=== PATIENT | male | born 1970 | race Caucasian/White ===

== ENCOUNTER 2017-07-16 17:19 | Observation (INO) ==
[2017-07-16] MEDS ORDERED: 0.9 % Sodium Chloride 1,000 ML IVC ONE (17:43)
--- NOTE | 2017-07-16 17:43 | Emergency Department Note ---
Disposition Clinical Impression: Dehydration Chest pain Qualifiers: Chest pain type: unspecified Qualified Code(s): R07.9 - Chest pain, unspecified Disposition: Admitted As Inpatient Condition: Good Referrals: NONE,PCP [Primary Care Provider] - Forms: ED Satisfaction Letter Time of Disposition: 20:56 Chest Pain HPI - General Chief Complaint: ED Chest Pain Stated Complaint: C/P for 6 months vs ETOH Time Seen by Provider: 07/16/17 17:41 Source: EMS Mode of arrival: EMS Limitations: altered mental status, other Vital Signs Reviewed: Yes Nursing Notes Reviewed: Yes - History of Present Illness HPI Narrative: story difficult to obtain as patient is poor historian, but ems report was that the neighbor called ems for c/o patient stating chest pain off/on for 6 months. patient states he has been drinking today. patients story not coherant "I'm a wimp, you're a wimp, we go [place]" cannot redirect. Pt complaint: chest pain Severity scale (1-10): 0 - Related Data Home Medications Medication Instructions Recorded Confirmed [place] Carbonate 100 mg PO DAILY 05/26/16 07/16/17 Quetiapine Fumarate [Seroquel] 50 mg PO HS 05/26/16 07/16/17 traZODone [TraZODone] 150 mg PO HS 05/26/16 07/16/17 Previous Rx's Medication Instructions Recorded hydrOXYzine pamoate [Hydroxyzine 50 mg PO HS PRN #20 capsule 06/03/16 Pamoate] Allergies Allergy/AdvReac Type Severity Reaction Status Date / Time No Known Allergies Allergy Verified 12/10/15 10:42 Review of Systems: Review of systems difficult to obtain secondary to patient's condition Chart generated with voice recognition software Nursing notes reviewed Old records reviewed Chest Pain PMH - Past Medical History Medical history: Reports: non-contributory, other Surgical history: Reports: no surgical history Psychiatric history: Reports: anxiety, depression - Social History Smoking Status: Former smoker Alcohol use: Reports: occasionally Drug use: Reports: none Physical Exam General: NAD, VSS Head: normocephalic, atraumatic Eyes: EOMI, PERRLA mouth: Dry mucous membranes Neck: NO CLA, Supple Chest wall: normal rise, no crepitus, no deformity noted Lungs: moving air well, no distress Heart: Tachycardic regular rhythm Abd: soft, nontender, BS normal : deferred MSK: strength equal in all four extremities Ext: moves all four extremities, no obvious deformities Skin: cap refill normal, warm, dry neuro : CN2-12 grossly intact, oriented to person Psych: Not anxious - General Limitations: other General appearance: alert, in no apparent distress, appears intoxicated Course Course Narrative: patient presents today with confusion, and also chest pains.he came by ems. he initially was more confused, but since he has been here his confusion has improved. he was tachycardic when he arrived. this is now improved with hydration. patient states he has intermitant sharp chest pains that have come/go for 6 months. He is chest pain free right now. patient is comfortable staying overnight to be observed. Patient did try to get up, got caught in his iv line,a nd fell, striking his L hip. He denies any pain at this time. no loc. no head injury. I spoke with Dr Vidal, as I feel patient should be observed overnight, and he is agreeable to observation for chest pain. I spoke with psych who stated this was his baseline as far as they knew him, and they do know him. Vital Signs Temperature 98.8 F 07/16/17 17:21 Pulse Rate 120 07/16/17 17:21 Respiratory Rate 18 07/16/17 17:21 Blood Pressure 127/85 07/16/17 17:21 O2 Sat by Pulse Oximetry 97 07/16/17 17:21 Temperature 98.8 F 07/16/17 17:21 Pulse Rate 100 07/16/17 19:59 Respiratory Rate 16 07/16/17 19:59 Blood Pressure 154/103 07/16/17 19:59 O2 Sat by Pulse Oximetry 98 07/16/17 19:59 Oxygen Delivery Oxygen Delivery Room Air Chest Pain - Medical Records Medical records reviewed: Yes I reviewed the patient's medical records. - Lab Data Lab results reviewed: Yes I reviewed the patient's lab results. Result diagrams: 07/16/17 18:16 07/16/17 18:16 Lab Results 07/16/17 07/16/17 07/16/17 Range/Units 18:16 18:16 18:16 WBC 4.0 L (4.3-11.1) K/mcL RBC 4.15 L (4.19-5.50) M/mcL Hgb 14.7 (12.9-16.9) g/dL Hct 41.9 (37.5-50.1) % MCV 101.0 H (83.0-100.0) fL MCH 35.4 H (28.0-33.3) pg MCHC 35.1 (31.6-35.5) g/dL RDW 11.9 (11.5-14.5) % Plt Count 58 L (140-400) K/mcL MPV 11.4 (9.4-12.4) fL Immature Gran % 0.2 (0-4) % Seg Neutrophils % 60.1 % Lymphocytes % 23.9 % Monocytes % 14.9 % Eosinophils % 0.7 % Basophils % 0.2 % Neutrophils # 2.4 (1.6-8.9) K/mcL Lymphocytes # 1.0 (0.6-4.6) K/mcL Monocytes # 0.6 (0.0-1.3) K/mcL Eosinophils # 0.0 (0.0-0.6) K/mcL Basophils # 0.0 (0.0-0.2) K/mcL Platelet Estimate Decreased L (Normal) PT 14.4 H (9.4-12.1) Seconds INR 1.3 APTT 36.6 H (26.0-36.0) Seconds Sodium (136-145) mEq/L Potassium (3.5-5.1) mEq/L Chloride (98-107) mEq/L Carbon Dioxide (23-29) mEq/L BUN (6-20) mg/dL Creatinine (0.70-1.30) mg/dL Est GFR ( Amer) (> 60) Est GFR (Non-Af Amer) (> 60) BUN/Creatinine Ratio (6-26) Glucose (70-105) mg/dL Calculated Osmolality (280-300) Calcium (8.6-10.3) mg/dL Total Bilirubin 1.4 H (0.3-1.0) mg/dL Direct Bilirubin 0.4 H (0.0-0.2) mg/dL Indirect Bilirubin 1.0 (0.0-1.2) mg/dL AST 110 H (13-39) Units/L ALT 88 H (7-52) Units/L Alkaline Phosphatase 128 H (34-104) Units/L Ammonia (16-53) mcmol/L Troponin I (< 0.04) ng/mL Serum Total Protein 7.1 (6.4-8.9) g/dL Albumin 3.6 (3.5-5.7) g/dL Globulin 3.5 (2.4-3.5) g/dL Albumin/Globulin Ratio 1.0 L (1.1-2.2) Lipase 39 (11-82) Units/L Urine Color (Yellow) Urine Clarity (Clear) Urine pH (5.0-8.0) pH Units Ur Specific [place] (1.010-1.025) Urine Protein (Neg-Trace) mg/dL Urine Glucose (UA) (Normal) mg/dL Urine Ketones (Negative) mg/dL Urine Blood (Negative) Urine Nitrite (Negative) Urine Bilirubin (Negative) Urine Urobilinogen (Normal) mg/dL Ur Leukocyte Esterase (Negative) Ur Culture Indicated? (NO) Urine Opiates Screen (Axrdco=542) ng/mL Ur Oxycodone Screen (Cutoff= 100) ng/mL Ur Barbiturates Screen (Ghdhvi=662) ng/mL Ur Phencyclidine Scrn (Cutoff=25) ng/mL Ur Amphetamines Screen (Kmkzln=0489) ng/mL U Benzodiazepines Scrn (Hhhzhl=100) ng/mL [place] (0.6-1.2) mEq/L Urine Cocaine Screen (Cutoff= 300) ng/mL U Marijuana (THC) Screen (Cutoff = 50) ng/mL Ethyl Alcohol < 10 (Less than 10) mg/dL 07/16/17 07/16/17 07/16/17 Range/Units 18:16 18:16 18:22 WBC (4.3-11.1) K/mcL RBC (4.19-5.50) M/mcL Hgb (12.9-16.9) g/dL Hct (37.5-50.1) % MCV (83.0-100.0) fL MCH (28.0-33.3) pg MCHC (31.6-35.5) g/dL RDW (11.5-14.5) % Plt Count (140-400) K/mcL MPV (9.4-12.4) fL Immature Gran % (0-4) % Seg Neutrophils % % Lymphocytes % % Monocytes % % Eosinophils % % Basophils % % Neutrophils # (1.6-8.9) K/mcL Lymphocytes # (0.6-4.6) K/mcL Monocytes # (0.0-1.3) K/mcL Eosinophils # (0.0-0.6) K/mcL Basophils # (0.0-0.2) K/mcL Platelet Estimate (Normal) PT (9.4-12.1) Seconds INR APTT (26.0-36.0) Seconds Sodium 136 (136-145) mEq/L Potassium 4.3 (3.5-5.1) mEq/L Chloride 100 (98-107) mEq/L Carbon Dioxide 29 (23-29) mEq/L BUN 16 (6-20) mg/dL Creatinine 0.99 (0.70-1.30) mg/dL Est GFR ( Amer) > 60 (> 60) Est GFR (Non-Af Amer) > 60 (> 60) BUN/Creatinine Ratio 16 (6-26) Glucose 110 H (70-105) mg/dL Calculated Osmolality 284 (280-300) Calcium 9.1 (8.6-10.3) mg/dL Total Bilirubin (0.3-1.0) mg/dL Direct Bilirubin (0.0-0.2) mg/dL Indirect Bilirubin (0.0-1.2) mg/dL AST (13-39) Units/L ALT (7-52) Units/L Alkaline Phosphatase (34-104) Units/L Ammonia 31 (16-53) mcmol/L Troponin I < 0.03 (< 0.04) ng/mL Serum Total Protein (6.4-8.9) g/dL Albumin (3.5-5.7) g/dL Globulin (2.4-3.5) g/dL Albumin/Globulin Ratio (1.1-2.2) Lipase (11-82) Units/L Urine Color (Yellow) Urine Clarity (Clear) Urine pH (5.0-8.0) pH Units Ur Specific [place] (1.010-1.025) Urine Protein (Neg-Trace) mg/dL Urine Glucose (UA) (Normal) mg/dL Urine Ketones (Negative) mg/dL Urine Blood (Negative) Urine Nitrite (Negative) Urine Bilirubin (Negative) Urine Urobilinogen (Normal) mg/dL Ur Leukocyte Esterase (Negative) Ur Culture Indicated? (NO) Urine Opiates Screen (Xsqaxf=879) ng/mL Ur Oxycodone Screen (Cutoff= 100) ng/mL Ur Barbiturates Screen (Rtaeyi=664) ng/mL Ur Phencyclidine Scrn (Cutoff=25) ng/mL Ur Amphetamines Screen (Azyhjw=6484) ng/mL U Benzodiazepines Scrn (Jujiha=412) ng/mL [place] 0.0 L (0.6-1.2) mEq/L Urine Cocaine Screen (Cutoff= 300) ng/mL U Marijuana (THC) Screen (Cutoff = 50) ng/mL Ethyl Alcohol (Less than 10) mg/dL 07/16/17 07/16/17 07/16/17 Range/Units 20:15 20:15 20:19 WBC (4.3-11.1) K/mcL RBC (4.19-5.50) M/mcL Hgb (12.9-16.9) g/dL Hct (37.5-50.1) % MCV (83.0-100.0) fL MCH (28.0-33.3) pg MCHC (31.6-35.5) g/dL RDW (11.5-14.5) % Plt Count (140-400) K/mcL MPV (9.4-12.4) fL Immature Gran % (0-4) % Seg Neutrophils % % Lymphocytes % % Monocytes % % Eosinophils % % Basophils % % Neutrophils # (1.6-8.9) K/mcL Lymphocytes # (0.6-4.6) K/mcL Monocytes # (0.0-1.3) K/mcL Eosinophils # (0.0-0.6) K/mcL Basophils # (0.0-0.2) K/mcL Platelet Estimate (Normal) PT (9.4-12.1) Seconds INR APTT (26.0-36.0) Seconds Sodium (136-145) mEq/L Potassium (3.5-5.1) mEq/L Chloride (98-107) mEq/L Carbon Dioxide (23-29) mEq/L BUN (6-20) mg/dL Creatinine (0.70-1.30) mg/dL Est GFR ( Amer) (> 60) Est GFR (Non-Af Amer) (> 60) BUN/Creatinine Ratio (6-26) Glucose (70-105) mg/dL Calculated Osmolality (280-300) Calcium (8.6-10.3) mg/dL Total Bilirubin (0.3-1.0) mg/dL Direct Bilirubin (0.0-0.2) mg/dL Indirect Bilirubin (0.0-1.2) mg/dL AST (13-39) Units/L ALT (7-52) Units/L Alkaline Phosphatase (34-104) Units/L Ammonia (16-53) mcmol/L Troponin I < 0.03 (< 0.04) ng/mL Serum Total Protein (6.4-8.9) g/dL Albumin (3.5-5.7) g/dL Globulin (2.4-3.5) g/dL Albumin/Globulin Ratio (1.1-2.2) Lipase (11-82) Units/L Urine Color Yellow (Yellow) Urine Clarity Clear (Clear) Urine pH 5.5 (5.0-8.0) pH Units Ur Specific [place] <= 1.005 L (1.010-1.025) Urine Protein Negative (Neg-Trace) mg/dL Urine Glucose (UA) Normal (Normal) mg/dL Urine Ketones Negative (Negative) mg/dL Urine Blood Negative (Negative) Urine Nitrite Negative (Negative) Urine Bilirubin Negative (Negative) Urine Urobilinogen Normal (Normal) mg/dL Ur Leukocyte Esterase Negative (Negative) Ur Culture Indicated? NO (NO) Urine Opiates Screen Negative (Cqmtko=846) ng/mL Ur Oxycodone Screen Negative (Cutoff= 100) ng/mL Ur Barbiturates Screen Negative (Vshdut=782) ng/mL Ur Phencyclidine Scrn Negative (Cutoff=25) ng/mL Ur Amphetamines Screen Negative (Zwxusb=3418) ng/mL U Benzodiazepines Scrn Negative (Vxgklt=231) ng/mL [place] (0.6-1.2) mEq/L Urine Cocaine Screen Negative (Cutoff= 300) ng/mL U Marijuana (THC) Screen Positive H (Cutoff = 50) ng/mL Ethyl Alcohol (Less than 10) mg/dL - Radiology Data Radiology results reviewed: Yes I reviewed the patient's radiology results. - EKG Data EKG attestation: Yes I reviewed and interpreted this EKG. EKG results narrative: EKG interpreted by myself as sinus tachycardia rate of 113 and QTc [address] elevation I do not prior EKG for comparison at this time Heart Score - Score History: Slightly Suspicious EKG: Normal Age: 45-65 Troponin: Less than normal limit
[2017-07-16] MEDS ORDERED: Thiamine (B-1) 100 MG, Folic Acid 1 MG, MVI, adult with vitamin K 10 ML in 0.9 % Sodi... IVPB SCH ×2 (18:00→18:15)
[2017-07-16 18:36] LABS: Basophils % 0.2 %; Eosinophils % 0.7 %; Hematocrit 41.9 % (37.5-50.1); Hemoglobin 14.7 g/dL (12.9-16.9); Immature Granulocytes % 0.2 % (0-4); Lymphocytes % 23.9 %; Mean Corpuscular HGB Conc 35.1 g/dL (31.6-35.5); Mean Corpuscular Hemoglobin 35.4 pg (28.0-33.3); Mean Platelet Volume 11.4 fL (9.4-12.4); Monocytes # 0.6 K/mcL (0.0-1.3); Monocytes % 14.9 %; Neutrophils # 2.4 K/mcL (1.6-8.9); Red Blood Count 4.15 M/mcL (4.19-5.50); Red Cell Distribution Width 11.9 % (11.5-14.5); Segmented Neutrophils % 60.1 %
[2017-07-16 18:38] LABS: INR 1.3; Platelet Count 58 K/mcL (140-400); Prothrombin Time 14.4 Seconds (9.4-12.1)
[2017-07-16 18:41] LABS: Activated Partial Thrombo Time 36.6 Seconds (26.0-36.0)
[2017-07-16 18:45] LABS: BUN/Creatinine Ratio 16 (6-26); Blood Urea Nitrogen 16 mg/dL (6-20); Calcium 9.1 mg/dL (8.6-10.3); Carbon Dioxide 29 mEq/L (23-29); Chloride 100 mEq/L (98-107); Glucose 110 mg/dL (70-105); Osmolality,Calculated 284 (280-300); Potassium 4.3 mEq/L (3.5-5.1); Sodium 136 mEq/L (136-145); eGFR For African Americans > 60 (> 60); eGFR For Non-African Americans > 60 (> 60)
[2017-07-16 18:46] LABS: Alanine Aminotransferase 88 Units/L (7-52); Albumin 3.6 g/dL (3.5-5.7); Alkaline Phosphatase 128 Units/L (34-104); Aspartate Amino Transferase 110 Units/L (13-39); Bilirubin,Direct 0.4 mg/dL (0.0-0.2); Bilirubin,Total 1.4 mg/dL (0.3-1.0); Ethanol < 10 mg/dL (Less than 10); Globulin 3.5 g/dL (2.4-3.5); Lipase 39 Units/L (11-82); Total Protein 7.1 g/dL (6.4-8.9)
[2017-07-16 18:50] LABS: Troponin I < 0.03 ng/mL (< 0.04)
[2017-07-16 19:03] LABS: Platelet Estimate Decreased (Normal)
[2017-07-16 20:25] LABS: Bilirubin,Urine Negative (Negative); Blood,Urine Negative (Negative); Clarity,Urine Clear (Clear); Color,Urine Yellow (Yellow); Glucose,Urine (UA) Normal (Normal); Ketones,Urine Negative (Negative); Leukocyte Esterase,Urine Negative (Negative); Nitrite,Urine Negative (Negative); PH,Urine 5.5 pH Units (5.0-8.0); Protein,Urine Negative (Neg-Trace); Specific Gravity,Urine <= 1.005 (1.010-1.025); Urobilinogen,Urine Normal (Normal)
[2017-07-16 20:35] LABS: Amphetamine Screen,Urine Negative ng/mL (Cutoff=1000); Barbiturate Screen,Urine Negative ng/mL (Cutoff=200); Benzodiazepines Screen,Urine Negative ng/mL (Cutoff=200); Cannabinoid Screen,Urine Positive ng/mL (Cutoff = 50); Cocaine Screen,Urine Negative ng/mL (Cutoff= 300); Opiate Screen,Urine Negative ng/mL (Cutoff=300); Phencyclidine Screen,Urine Negative ng/mL (Cutoff=25)
[2017-07-16] MEDS ORDERED: *HR* Promethazine 25 MG/ML VIAL IVP PRN (22:46)
[2017-07-16] MEDS ORDERED: Naloxone 0.4 MG/ML INJ IVP PRN (22:46)
[2017-07-16] MEDS ORDERED: hydrOXYzine pamoate 25 MG CAPSULE PO PRN (22:46)
[2017-07-16] MEDS: 0.9 % Sodium Chloride 1,000 ML IVC SCH (23:18)
[2017-07-16] MEDS: *HR* LORazepam 2 MG/ML VIAL IVP PRN (23:21)
[2017-07-17] MEDS: *HR* LORazepam 2 MG/ML VIAL IVP PRN (00:17)
[2017-07-17] MEDS ORDERED: Haloperidol Lactate 5 MG/ML VIAL IVP ONE (02:09)
[2017-07-17 05:28] LABS: Basophils % 0.3 %; Eosinophils # 0.1 K/mcL (0.0-0.6); Eosinophils % 1.9 %; Hematocrit 40.5 % (37.5-50.1); Hemoglobin 13.8 g/dL (12.9-16.9); Lymphocytes % 30.5 %; Mean Corpuscular HGB Conc 34.1 g/dL (31.6-35.5); Mean Corpuscular Hemoglobin 35.8 pg (28.0-33.3); Mean Corpuscular Volume 104.9 fL (83.0-100.0); Mean Platelet Volume 12.5 fL (9.4-12.4); Monocytes # 0.5 K/mcL (0.0-1.3); Monocytes % 14.9 %; Neutrophils # 1.6 K/mcL (1.6-8.9); Red Blood Count 3.86 M/mcL (4.19-5.50); Red Cell Distribution Width 12.1 % (11.5-14.5); Segmented Neutrophils % 52.4 %
[2017-07-17 05:29] LABS: Platelet Count 68 K/mcL (140-400)
[2017-07-17 05:49] LABS: BUN/Creatinine Ratio 15 (6-26); Blood Urea Nitrogen 13 mg/dL (6-20); Calcium 8.7 mg/dL (8.6-10.3); Carbon Dioxide 29 mEq/L (23-29); Chloride 106 mEq/L (98-107); Glucose 101 mg/dL (70-105); Osmolality,Calculated 288 (280-300); Potassium 4.4 mEq/L (3.5-5.1); Sodium 139 mEq/L (136-145); eGFR For African Americans > 60 (> 60); eGFR For Non-African Americans > 60 (> 60)
[2017-07-17] MEDS ORDERED: LITHIUM CARBONATE PO SCH (09:00)
[2017-07-17] MEDS ORDERED: Thiamine (B-1) 100 MG TABLET PO SCH (09:00)
[2017-07-17] MEDS ORDERED: Vitamin B Complex/Vit C/Vit E 1 EACH TABLET PO SCH (09:00)
[2017-07-17] MEDS ORDERED: Folic Acid 1 MG TABLET PO SCH (09:00)
[2017-07-17 10:47] VITALS: BP 145/88
[2017-07-17] MEDS: 0.9 % Sodium Chloride 1,000 ML IVC SCH (10:57)
--- NOTE | 2017-07-17 13:56 | Internal Med History&Physical ---
Date of Encounter: 07/17/17 Time of Encounter: 13:55 Assessment and Plan (1) Chest pain Current visit: Yes Status: Acute Repeat cardiac enzymes were ordered through emergency room. Qualifiers: Chest pain type: unspecified Qualified Code(s): R07.9 - Chest pain, unspecified Internal Medicine - H&P: HPI Chief complaint: Chest pain Admitted From: Emergency Dept Plans for Post Hospital Care: Home History of present illness: Mr. Cifuentes is a 46 year old male who came to emergency room that evening of complaining of chest pain. Past Med Surg Social Fam HX - Past Medical History Medical history: non-contributory, other Psychiatric history: anxiety, depression - Past Surgical History Surgical History: no surgical history - Social History Smoking Status: Former smoker Smokeless Tobacco Status: No Alcohol use: occasionally Drug use: marijuana Internal Medicine - H&P: Meds [place] Carbonate 100 mg PO DAILY 05/26/16 [History] Quetiapine Fumarate [Seroquel] 50 mg PO HS 05/26/16 [History] traZODone [TraZODone] 150 mg PO HS 05/26/16 [History] hydrOXYzine pamoate [Hydroxyzine Pamoate] 50 mg PO HS PRN #20 capsule 06/03/16 [ Rx] 3 Allergy/AdvReac Type Severity Reaction Status Date / Time No Known Allergies Allergy Verified 12/10/15 10:42 All Systems PM: A 10-system review of systems was performed and is negative for pertinent findings except as documented above in the HPI. - Constitutional Vitals: Temp Pulse Resp BP Pulse Ox 98.2 F 80 16 145/88 96 07/17/17 10:47 07/17/17 10:47 07/17/17 10:47 07/17/17 10:47 07/17/17 10:47 Internal Med - H&P Results - Labs CBC & Chem 7: 07/17/17 04:07 07/17/17 04:07 Labs: Short CBC 07/17/17 Range/Units 04:07 WBC 3.1 L (4.3-11.1) K/mcL Hgb 13.8 (12.9-16.9) g/dL Hct 40.5 (37.5-50.1) % Plt Count 68 L (140-400) K/mcL Neutrophils # 1.6 (1.6-8.9) K/mcL BMP 07/17/17 04:07 Sodium 139 Potassium 4.4 Chloride 106 Carbon Dioxide 29 BUN 13 Creatinine 0.84 Glucose 101 Calcium 8.7 Cardiac Enzymes 07/17/17 07/17/17 Range/Units 04:07 10:15 Troponin I < 0.03 < 0.03 (< 0.04) ng/mL
--- NOTE | 2017-07-17 13:58 | Discharge Summary ---
Date of Encounter: 07/17/17 Time of Encounter: 13:55 - Discharge Diagnosis (1) Chest pain Priority: Primary Status: Acute Qualifiers: Chest pain type: unspecified Qualified Code(s): R07.9 - Chest pain, unspecified Hospital course: Mr. Cifuentes is a 46 year old male who came to emergency room complaining of chest pain. He was admitted to [facility] for ongoing care needs. He left AMA before I saw him. - Time Spent with Patient Total time spent providing and/or coordinating discharge services: - Discharge Medications Home Medications: [place] Carbonate 100 mg PO DAILY 05/26/16 [History] Quetiapine Fumarate [Seroquel] 50 mg PO HS 05/26/16 [History] traZODone [TraZODone] 150 mg PO HS 05/26/16 [History] hydrOXYzine pamoate [Hydroxyzine Pamoate] 50 mg PO HS PRN #20 capsule 06/03/16 [ Rx] Allergies/Adverse Reactions: 3 Allergy/AdvReac Type Severity Reaction Status Date / Time No Known Allergies Allergy Verified 12/10/15 10:42 Date of admission: 07/16/17 21:07 Primary care physician: PCP NONE Consults: 07/16/17 22:46 Consult to General Office Clerk [CONS] Routine Reason for SW Consult: acute alcohol withdrawal - Constitutional Vitals: Temp Pulse Resp BP Pulse Ox 98.2 F 80 16 145/88 96 07/17/17 10:47 07/17/17 10:47 07/17/17 10:47 07/17/17 10:47 07/17/17 10:47 - Patient Status Disposition: Left Against Medical Advice Condition: Good - Discharge Instructions Follow Up With: NONE,PCP [Primary Care Provider] - 1 week
[2017-07-17] MEDS ORDERED: Thiamine (B-1) 100 MG, Folic Acid 1 MG, MVI, adult with vitamin K 10 ML in 0.9 % Sodi... IVPB SCH (18:00)
[2017-07-17] MEDS ORDERED: traZODone 50 MG TABLET PO SCH (21:00)
--- NOTE | 2017-07-20 06:38 | Electrocardiograph Report ---
[address] [address] Test Date: 2017-07-16 Pat Name: Kendall Cifuentes Department: [id number] Room: [facility] Gender: M Functional Manager: [id number] : 1970 Requested By: Liliana Godoy Order Number: [id number] Reading MD: Kendall Townsend MD Measurements Intervals [place] Rate: 113 P: 68 MO: 167 QRS: -19 QRSD: 103 T: 53 QT: 353 QTc: 420 Interpretive Statements SINUS TACHYCARDIA Electronically Signed On 07-20-2017 6:36:32 EDT by Kendall Townsend MD
--- NOTE | 2017-07-20 07:01 | Electrocardiograph Report ---
[address] [address] Test Date: 2017-07-17 Pat Name: Kendall Cifuentes Department: [id number] Room: [facility] Gender: M Qa Architect: [id number] : 1970 Requested By: Liliana Godoy Order Number: [id number] Reading MD: Kendall Townsend MD Measurements Intervals [place] Rate: 75 P: 46 UT: 185 QRS: -4 QRSD: 103 T: 19 QT: 393 QTc: 423 Interpretive Statements SINUS RHYTHM Electronically Signed On 07-20-2017 6:59:31 EDT by Kendall Townsend MD
== END 2017-07-17 12:11 | disposition left against medical advice (07) ==
LOC: EMEROOPIK 17:19 → INPPIK 17:19
PROVIDERS: ADMIT Internal Medicine; ATTEND Internal Medicine